=== PATIENT | female | born 1985 | race Hispanic/Latino ===

== ENCOUNTER 2023-08-01 09:42 | Day surgery (SDC) | payer OTHER ==
[~2023-08-01] VITALS: Ht 167.6 cm; Wt 77.6 kg
[2023-08-01] VITALS (11 sets, daily range): BP systolic 93–113; BP diastolic 40–71; PULSE 59–70; RESP 12–20
[~2023-08-01 09:42] MED LIST: LORA10TA7 PO; MEDR150D9 IM; MONT-39 PO; MULT-1203 PO
[2023-08-01] MEDS ORDERED: MONT-39 PO (11:31)
[2023-08-01] MEDS ORDERED: PROPOFOL 10 MG/ML 20ML VIAL IV ONE (12:54)
== END 2023-08-01 14:05 | disposition home or self-care (01) ==
LOC: DAH 09:42 → ENDO 09:42
PROVIDERS: ATTEND Internal Medicine Gastroenterology
DX: R10.13 Epigastric pain (principal); K29.50 Unspecified chronic gastritis without bleeding; Z80.9 Family history of malignant neoplasm, unspecified; Z98.891 History of uterine scar from previous surgery
CPT/HCPCS: 81025; 43239; J2704; A4620; A4215 ×2; A4223; A7002; A4222; A4221; A4663; A4216; J7030; A4606; J3490